=== PATIENT | female | born 1945 | race Caucasian/White ===

== ENCOUNTER → 2021-02-10 | Outpatient (CLI) | payer OTHER | LOC: KOH-I 11:30 | DX: R22.42 Localized swelling, mass and lump, left lower limb (principal); M71.22 Synovial cyst of popliteal space [Baker], left knee | CPT/HCPCS: 76881 ==

== ENCOUNTER → 2021-07-06 | Outpatient (CLI) | payer OTHER | LOC: EXRD 10:02 | DX: R10.9 Unspecified abdominal pain (principal) | CPT/HCPCS: 76700 ==

== ENCOUNTER → 2021-09-30 | Outpatient (CLI) | payer OTHER | LOC: CT 09-22 15:30 | DX: K76.89 Other specified diseases of liver (principal) | CPT/HCPCS: 36415; 74170; 82565; 84520; Q9967 ==